=== PATIENT | female | born 1930 | race Caucasian/White ===

== ENCOUNTER 2017-11-09 02:02 | Emergency (ER) | payer OTHER ==
[~2017-11-09] VITALS: Ht 162.6 cm; Wt 50.9 kg
[2017-11-09 02:23] LABS: BASOPHILS % (AUTO) 0.2 % (0.0-2.0); HEMATOCRIT 34.5 % (36-46); HEMOGLOBIN 11.7 g/dL (12.0-16.0); LYMPHOCYTES # (AUTO) 0.9 K/uL (1.0-4.8); LYMPHOCYTES % (AUTO) 15.6 % (22.0-44.0); MEAN CORPUSCULAR HEMOGLOBIN 31.7 pg (26.0-34.0); MEAN CORPUSCULAR VOLUME 93 fL (80-100); MONOCYTES # (AUTO) 0.8 K/uL (0.1-1.0); MONOCYTES % (AUTO) 13.8 % (2.0-9.0); NEUTROPHILS # (AUTO) 3.9 K/uL (1.8-7.7); NEUTROPHILS % (AUTO) 63.4 % (40.0-70.0); RED CELL DISTRIBUTION WIDTH 13.9 % (11.5-14.5)
[2017-11-09] MEDS ORDERED: RISP.5 PO (02:24)
[2017-11-09] MEDS ORDERED: LABE200T PO (02:24)
[2017-11-09] MEDS ORDERED: ASPI-1182 PO (02:24)
[2017-11-09] MEDS ORDERED: DEXT1DRO8 OU (02:24)
[2017-11-09] MEDS ORDERED: SIMV-260 PO (02:24)
[2017-11-09] MEDS ORDERED: BISA5TAB12 PO (02:24)
[2017-11-09] MEDS ORDERED: MOM30 PO (02:24)
[2017-11-09 02:33] LABS: ANION GAP 4 mmol/L (8-16); CALCIUM, TOTAL 9.1 mg/dL (8.8-10.5); CARBON DIOXIDE 29 mmol/L (22-29); CHLORIDE 107 mmol/L (98-107); CREATININE 1.38 mg/dL (0.60-1.30); GLOMERULAR FILTR. RATE CALC 36 mL/min (>60); GLUCOSE,RANDOM 99 mg/dL (70-110); POTASSIUM 4.1 mmol/L (3.5-5.1); SODIUM SERUM 140 mmol/L (136-145); UREA NITROGEN, BLOOD 32 mg/dL (7-18)
[2017-11-09 02:35] LABS: PROTHROMBIN TIME 10.7 SEC (9.4-11.6)
[2017-11-09 02:47] LABS: ALANINE AMINOTRANSFERASE 22 U/L (12-78); ALBUMIN 3.2 g/dL (3.4-5.0); ALKALINE PHOSPHATASE 51 U/L (46-116); ASPARTATE AMINOTRANSFERASE 17 U/L (15-37); BILIRUBIN,TOTAL 0.3 mg/dL (0.1-1.0); CREATINE KINASE, TOTAL 56 U/L (26-192); TOTAL PROTEIN, SERUM 7.2 g/dL (6.4-8.2)
[2017-11-09 02:59] LABS: PLATELET COUNT (AUTO) 145 K/uL (150-450); PLATELET MORPHOLOGY COMMENT GIANT PLTS PRESENT
[2017-11-09 03:05] VITALS: BP 234/134
[2017-11-09] MEDS ORDERED: METOPROLOL TARTRATE 5 MG/5 ML VIAL IVP ONE (03:30)
== END 2017-11-09 03:18 | disposition short-term general hospital (02) ==
LOC: EMS 02:03
DX: S42.252A Displaced fracture of greater tuberosity of left humerus, initial encounter for closed fracture (principal); S06.5X9A Traumatic subdural hemorrhage with loss of consciousness of unspecified duration, initial encounter; E11.9 Type 2 diabetes mellitus without complications; I95.1 Orthostatic hypotension; Z79.82 Long term (current) use of aspirin; W19.XXXA Unspecified fall, initial encounter; Y93.89 Activity, other specified; Y92.89 Other specified places as the place of occurrence of the external cause; Y99.8 Other external cause status
CPT/HCPCS: 29240; 36415; 70450; 71010; 73030; 80053; 82550; 82962; 84484; 85025; 85610; 85730; 93005; 96374; 99285; J3490